=== PATIENT | male | born 1985 | race American Indian/Alaskan Native ===

== ENCOUNTER 2019-04-15 14:15 | Emergency (ER) | payer SELFPAY ==
--- NOTE | 2019-04-15 15:50 | Event Note ---
ED Screening Note ED Screening Note: pt presents for a fever that began 3 days ago body aches +productive cough v/d 1-2 episodes a day PMHx none no daily meds no allergies to meds This initial assessment/diagnostic orders/clinical plan/treatment(s) is/are subject to change based on patients health status, clinical progression and re-assessment by fellow clinical providers in the ED. Further treatment and workup at subsequent clinical providers discretion. Patient/guardian urged not to elope from the ED as their condition may be serious if not clinically assessed and managed. Initial orders include: CXR
[2019-04-15 15:56] VITALS: BP 118/76
--- NOTE | 2019-04-15 16:54 | XRay Report ---
CHEST 2 VIEWS INDICATION / CLINICAL INFORMATION: productive cough, fever. COMPARISON: None available. FINDINGS: SUPPORT DEVICES: None. HEART / MEDIASTINUM: No significant abnormality. LUNGS / PLEURA: No significant pulmonary or pleural abnormality. No pneumothorax. ADDITIONAL FINDINGS: No significant additional findings. IMPRESSION: 1. No acute findings. Signer Name: Wilbur Rhodes MD Signed: 04/15/2019 4:50 PM Workstation Name: [id number]
--- NOTE | 2019-04-15 17:50 | Emergency Department Report ---
Minor Respiratory - HPI Chief Complaint: Upper Respiratory Infection Stated Complaint: FEVER Time Seen by Provider: 04/15/19 15:49 Duration: 3 Days Pain Location: Chest Severity: moderate Minor Respiratory: Yes Rhinorrhea, Yes Cough, Yes Sick Contacts, Yes Chest Pain, No Sore Throat, No Able to Tolerate Fluids, No Ear Pain, No Hemoptysis, No Shortness of Breath, No Fever ED Review of Systems ROS: Stated complaint: FEVER Other details as noted in HPI Constitutional: chills. denies: fever ENT: congestion. denies: ear pain, throat pain Respiratory: cough. denies: shortness of breath, wheezing Cardiovascular: chest pain (Chest discomfort with cough). denies: palpitations Gastrointestinal: denies: abdominal pain, nausea, diarrhea Musculoskeletal: denies: back pain, joint swelling, arthralgia Skin: denies: rash, lesions Neurological: headache. denies: weakness, paresthesias Psychiatric: denies: anxiety, depression ED Past Medical Hx - Past Medical History Previous Medical History?: No - Surgical History Past Surgical History?: No - Social History Smoking Status: Never Smoker Substance Use Type: None - Medications Home Medications: Home Medications Medication Instructions Recorded Confirmed Last Taken Type Benzonatate [Tessalon Perles] 100 mg PO Q8HR PRN #30 capsule 04/15/19 Unknown Rx Cetirizine HCl [Zyrtec 10mg tab] 10 mg PO DAILY #30 tablet 04/15/19 Unknown Rx Fluticasone [Flonase] 1 spray NS QDAY #1 bottle 04/15/19 Unknown Rx Minor Respiratory Exam - Exam General: Vital signs noted. No distress. Alert and acting appropriately. HEENT: Yes Pharyngeal Erythema (Erythematous posterior pharynx, uvula midline without exudate), Yes Moist Mucous Membranes, Yes Rhinorrhea (Turbinates congested with clear discharge), No Pharyngeal Exudates, No Conjuctival Inje ction, No Frontal Tenderness, No Maxillary Tenderness Ear: Neither TM Bulge, Neither TM Erythema, Neither EAC Pain, Neither EAC Discharge Neck: Yes Supple, No Adenopathy Lungs: Yes Good Air Exchange, No Wheezes, No Ronchi, No Stridor, No Cough, No Labored Respirations, No Retractions, No Use of Accessory Muscles, No Other A bnormal Lung Sounds Heart: Yes Regular, No Murmur Abdomen: Yes Normal Bowel Sounds, No Tenderness, No Peritoneal Signs Skin: No Rash, No Edema Neurologic: Alert and oriented, no deficits. Musculoskeletal: Unremarkable. ED Course Vital Signs 04/15/19 15:50 Temperature 97.9 F Pulse Rate 79 Respiratory 18 Rate Blood Pressure 118/76 O2 Sat by Pulse 100 Oximetry ED Medical Decision Making - Radiology Data Radiology results: report reviewed CHEST 2 VIEWS INDICATION / CLINICAL INFORMATION: productive cough, fever. COMPARISON: None available. FINDINGS: SUPPORT DEVICES: None. HEART / MEDIASTINUM: No significant abnormality. LUNGS / PLEURA: No significant pulmonary or pleural abnormality. No pneumothorax. ADDITIONAL FINDINGS: No significant additional findings. IMPRESSION: 1. No acute findings. - Medical Decision Making This is a 33-year-old male who presents to the emergency room with upper respiratory symptoms. Vitals are stable and patient in no acute distress. Work-up: Chest x-ray. Chest xray has been obtained and dictated by radiologist with no acute findings. Labs deferred at this time. There is low suspicion of acute sinusitis, pneumonia, influenza, laryngitis, epiglottitis, and pertussis. Reviewed results with patient. Symptoms are consistent with a viral infection such as upper respiratory infection. Start antihistamines, cough suppressant, and inhaled corticosteroid. Follow-up with PCP in 2 to 3 days if symptoms are worsening. Discharged home stable with strict return instructions. Critical care attestation.: If time is entered above; I have spent that time in minutes in the direct care of this critically ill patient, excluding procedure time. ED Disposition Clinical Impression: Cough in adult, Chest discomfort Upper respiratory infection Qualifiers: URI type: acute nasopharyngitis (common cold) Qualified Code(s): J00 - Acute nasopharyngitis [common cold] Disposition: - TO HOME OR SELFCARE Is pt being admited?: No Condition: Stable Instructions: Upper Respiratory Infection (ED), Cold Symptoms (ED) Additional Instructions: Increase fluid intake and rest. Wash hands frequently. Continue taking Tylenol or ibuprofen to control fever. Follow up with Primary Care Provider. Return to ER if fever, SOB, or difficulty breathing after 48 hours of supportive care. Prescriptions: Fluticasone [Flonase] 1 spray NS QDAY #1 bottle Benzonatate [Tessalon Perles] 100 mg PO Q8HR PRN #30 capsule PRN Reason: Cough Cetirizine HCl [Zyrtec 10mg tab] 10 mg PO DAILY #30 tablet Referrals: [facility] [Outside] - 3-5 Days [facility] [Outside] - 3-5 Days [facility] [Outside] - 3-5 Days Forms: Work/School Release Form(ED), Accompanied Note Time of Disposition: 18:01
[2019-04-15] MEDS ORDERED: traMADol 50 MG TAB PO ONE (17:54)
== END 2019-04-15 18:40 | disposition home or self-care (01) ==
LOC: ED 14:15
DX: J06.9 Acute upper respiratory infection, unspecified (principal); Z79.899 Other long term (current) drug therapy
CPT/HCPCS: 71046